=== PATIENT | male | born 1930 | race Asian ===

== ENCOUNTER 2017-04-05 15:20 | Inpatient (IN) | payer MEDICARE, MEDICAID ==
[~2017-04-05] VITALS: Ht 172.7 cm; Wt 90.7 kg
[~2017-04-05 15:20] MED LIST: ARICEPT10 MG ORAL; NAMENDA10 MG ORAL; NKM
[2017-04-05] MEDS ORDERED: Morphine Sulfate 2mg/ml Inj IVP ONE (15:30)
[2017-04-05 15:34] LABS: MEAN CORPUSCULAR HGB CONC 36.3 G/DL (32.0-36.0); MEAN CORPUSCULAR VOLUME 94 FL (80-99); MEAN PLATELET VOLUME 5.5 FL (6.5-10.1); PLATELET COUNT 304 K/UL (150-450); RED BLOOD COUNT 3.69 M/UL (4.70-6.10)
[2017-04-05 15:35] LABS: BASOPHILS % (AUTO) 1.4 % (0.0-2.0); EOSINOPHILS % (AUTO) 1.7 % (0.0-3.0); LYMPHOCYTES % (AUTO) 22.4 % (20.0-45.0); MONOCYTES % (AUTO) 3.4 % (1.0-10.0); NEUTROPHILS % (AUTO) 71.1 % (45.0-75.0)
[2017-04-05 15:51] LABS: ALANINE AMINOTRANSFERASE 15 U/L (3-41); ALBUMIN/GLOBULIN RATIO 1.2 (1.0-2.7); ANION GAP 18 (5-15); ASPARTATE AMINO TRANSFERASE 26 U/L (5-40); CALCIUM 9.3 mg/dL (8.6-10.2); CARBON DIOXIDE 22 mEQ/L (20-30); CHLORIDE 98 mEQ/L (98-107); CREATININE 1.5 mg/dL (0.7-1.2); HEMOLYSIS 9; POTASSIUM 4.7 mEQ/L (3.4-4.9); SODIUM 138 mEQ/L (135-145); TOTAL PROTEIN 7.3 g/dL (6.6-8.7)
[2017-04-05 15:57] LABS: INR 1.1 (0.9-1.1); PROTHROMBIN TIME 11.7 SEC (9.30-11.50)
[2017-04-05 15:59] VITALS: BP 94/66
[2017-04-05] MEDS ORDERED: Morphine Sulfate 4mg/ml Inj IVP ONE (16:15)
--- NOTE | 2017-04-05 16:15 | Emergency Room Report ---
History of Present Illness General Chief Complaint: Multiple Trauma/Fall Source: Patient, EMS Present Illness HPI Patient is an 86-year-old male who presented after having a recent fall. Patient had increased pain to his right hip. The patient had previously been admitted to the hospital for gallstones the past. Patient reported having increased pain and difficulty moving right leg. He had attempted to use a lidocaine patch with continued pain. The patient had not been able to a blood since the fall. Patient was brought in by EMS. Allergies: Coded Allergies: No Known Allergies (Unverified , 09/16/16) Patient History Reviewed Nursing Documentation: PMH: Agreed, PSxH: Agreed Nursing Documentation-PMH Past Medical History: No History, Except For Hx Cardiac Problems: No Hx Hypertension: Yes Hx Diabetes: Yes Hx Cancer: No Hx Gastrointestinal Problems: No Hx Neurological Problems: Yes - Dementia Hx Alzheimer's Disease: Yes Review of Systems All Other Systems: negative except mentioned in HPI Physical Exam Vital Signs Date Time Temp Pulse Resp B/P Pulse Ox O2 Delivery O2 Flow Rate FiO2 04/05/17 15:19 98.4 60 18 114/78 98 Room Air Sp02 EP Interpretation: reviewed, normal General Appearance: normal inspection, well appearing, no apparent distress, alert Head: atraumatic ENT: normal ENT inspection, hearing grossly normal, normal voice Neck: normal inspection, full range of motion, supple, no bony tend Respiratory: normal inspection, lungs clear, normal breath sounds, no respiratory distress, no retraction, no wheezing Cardiovascular #1: regular rate, rhythm, no edema Gastrointestinal: normal inspection, normal bowel sounds, non tender, soft, no guarding, no hernia Genitourinary: no CVA tenderness Musculoskeletal: back normal, normal range of motion Neurologic: normal inspection, alert, oriented x3, responsive, 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 Differential diagnosis included was not limited to fracture, dislocation, contusion muscle injury among others. CT of the abdomen pelvis read by radiology showed a comminuted right intertrochanteric femur fracture. The patient was given IV pain medications. Dr. Smith was contacted for inpatient management due to prior admission EKG Diagnostic Results Rate: bradycardiac Rhythm: NSR ST Segments: no acute changes ASA given to the pt in ED: No Rhythm Strip Diag. Results EP Interpretation: yes Rhythm: NSR, no PVC's, no ectopy Chest X-Ray Diagnostic Results Chest X-Ray Ordered: Yes # of Views/Limited/Complete: 1 View Interpretation: no consolidation, no effusion, no pneumothorax, no acute cardiopulmonary disease Indication: Other - preop Impression: No acute disease Date Electronically Signed: Apr 05, 2017 Time Electronically Signed: 17:06 Interpreting ER Physician: Richy Last Vital Signs Date Time Temp Pulse Resp B/P Pulse Ox O2 Delivery O2 Flow Rate FiO2 04/05/17 16:00 98.5 04/05/17 15:59 58 21 94/66 97 Room Air Status: unchanged Disposition: ADMITTED INPATIENT Condition: Serious Referrals: NOT CHOSEN IPA/,REFERRING (PCP) Mitesh Lockhart Apr 05, 2017 16:15
[2017-04-05 16:56] VITALS: BP 99/66
[2017-04-05] MEDS ORDERED: LORazepam Inj 2mg/ml 1ml IV ONE (17:15)
[2017-04-05] MEDS ORDERED: CELEBREX200 MG ORAL (17:48)
[2017-04-05] MEDS ORDERED: AMIODARONE HCL400 M1 ORAL (17:48)
[2017-04-05] MEDS ORDERED: XARELTO10 MG ORAL (17:48)
[2017-04-05] MEDS ORDERED: METOPROLOL SUCC25 MG ORAL (17:48)
[2017-04-05] MEDS ORDERED: NAMENDA XR28 MG PO (17:48)
[2017-04-05] MEDS ORDERED: MONTELUKAST SOD10 MG ORAL (17:48)
--- NOTE | 2017-04-05 18:15 | Cardiac Electrophysiology PN ---
Subjective Subjective [id number] HTN, PAF, Right femur Fx. Hold Xarelto, Get Echo. Continue Amiodarone and Lopressor Objective Last 24 Hour Vital Signs Date Time Temp Pulse Resp B/P Pulse Ox O2 Delivery O2 Flow Rate FiO2 04/05/17 16:56 97.4 54 13 99/66 99 Room Air 04/05/17 16:00 98.5 04/05/17 15:59 58 21 94/66 97 Room Air 04/05/17 15:19 98.4 60 18 114/78 98 Room Air PADMAJA RODRIGUEZ Apr 05, 2017 18:15
[2017-04-05 18:30] VITALS: BP 121/73
[2017-04-05] MEDS ORDERED: Zolpidem 5mg tab ORAL PRN (18:30)
[2017-04-05] MEDS ORDERED: Milk of Magnesia 30ml Ud ORAL PRN (18:30)
[2017-04-05] MEDS: HYDROmorphone 1mg/ml Carpuject IVP PRN (19:17)
[2017-04-05] MEDS: D5 1/2NS 1,000 ML IV SCH (19:42)
[2017-04-05 19:46] LABS: APPEARANCE,URINE CLEAR; KETONES,URINE NEGATIVE (NEGATIVE); LEUKOCYTE ESTERASE ,URINE NEGATIVE (NEGATIVE); NITRITE,URINE NEGATIVE (NEGATIVE); PH,URINE 7 (4.5-8.0); PROTEIN,URINE 2+ (NEGATIVE); UROBILINOGEN,URINE NORMAL MG/DL (0.0-1.0)
[2017-04-05 20:00] VITALS: BP 106/61
[2017-04-05 20:04] VITALS: BP 105/71
[2017-04-05 20:13] LABS: RBC,URINE 0-2 /HPF (0 - 0); WBC,URINE 0-2 /HPF (0 - 0)
[2017-04-05] MEDS: Heparin 5000 units/ml inj SUBQ SCH (21:00)
--- NOTE | 2017-04-05 21:45 | Consultation ---
DATE OF CONSULTATION: 04/05/2017 CARDIOLOGY CONSULTATION CONSULTING PHYSICIAN: Roosevelt Hatfield M.D. REFERRING PHYSICIAN: Evens Sheridan M.D. REASON FOR CONSULTATION: Management of hypertension and proximal atrial fibrillation in the patient with hip fracture. HISTORY OF PRESENT ILLNESS: The patient is an 86-year-old old Maltese gentleman with history of hypertension, paroxysmal atrial fibrillation, and dementia, who had a fall at home resulting in a right hip pain. The patient was in the hospital in the past for gallstones. The patient had attempted to use a lidocaine pain, but he had continued pain. The patient was brought by the paramedics to the emergency room where x-ray showed intertrochanteric right femur fracture. Cardiology consultation was obtained for further evaluation and management. At the time of my evaluation, patient is confused in the emergency room and complaints of right hip pain. REVIEW OF SYSTEMS: Cannot be obtained as the patient is confused despite Maltese full time. PAST MEDICAL HISTORY: 1. Hypertension. 2. Paroxysmal atrial fibrillation. 3. Dementia. MEDICATIONS: At home includes: 1. Amiodarone 100 mg daily. 2. Celebrex 200 mg daily. 3. Aricept. 4. Namenda. 5. Metoprolol 25 mg daily. 6. Xarelto 50 mg daily. SOCIAL HISTORY: He lives at home. Does not smoke or drink alcohol. PHYSICAL EXAMINATION: VITAL SIGNS: Blood pressure 94/66, pulse 58, respirations 21, and temperature 98.5 degrees. HEAD AND NECK: Showed no JVD. LUNGS: Clear. CARDIOVASCULAR: Shows regular S1 and S2 with no gallop or murmur. ABDOMEN: Soft. EXTREMITIES: Have no pitting edema. LABORATORY DATA: His labs show white count of 18, hemoglobin 12.5, hematocrit 34.5, and platelet count is 304,000. Sodium 138, potassium 4.7, BUN of 28, creatinine 1.5, and glucose of 160. INR is 1.1. ASSESSMENT AND PLAN: 1. History of hypertension. Resume the patient's metoprolol 25 mg daily. It is good for patients arrhythmia as well. We will hold for heart rate less than 55. 2. Paroxysmal atrial fibrillation. Xarelto will be held in preparation for hip surgery. Continue amiodarone 100 mg daily and Lopressor 25 mg daily. 3. Right hip fracture. We will get an echocardiogram and completely rule out myocardial infarction protocol for clearance prior to the surgery. 4. Dementia. 5. Elevated white count likely secondary to hip fracture. 6. Renal failure. Creatinine 1.[address] Sheridan. Thank you very much, Dr. Sheridan, for allowing me to participate in the care of this patient. Please do not hesitate to contact if you have any questions regarding my evaluation. Roosevelt Hatfield M.D. DR: CHEMO JOB#: [id number] CC:
[2017-04-06 07:04] LABS: BASOPHILS % (AUTO) 1.9 % (0.0-2.0); EOSINOPHILS % (AUTO) 2.5 % (0.0-3.0); LYMPHOCYTES % (AUTO) 22.4 % (20.0-45.0); MEAN CORPUSCULAR HEMOGLOBIN 33.5 PG (27.0-31.0); MEAN CORPUSCULAR HGB CONC 35.1 G/DL (32.0-36.0); MEAN CORPUSCULAR VOLUME 95 FL (80-99); MEAN PLATELET VOLUME 5.3 FL (6.5-10.1); MONOCYTES % (AUTO) 6.9 % (1.0-10.0); NEUTROPHILS % (AUTO) 66.2 % (45.0-75.0); PLATELET COUNT 253 K/UL (150-450); RED BLOOD COUNT 3.21 M/UL (4.70-6.10); RED CELL DISTRIBUTION WIDTH 12.2 % (11.6-14.8)
[2017-04-06 07:11] LABS: ANION GAP 13 (5-15); CALCIUM 8.7 mg/dL (8.6-10.2); CARBON DIOXIDE 23 mEQ/L (20-30); CHLORIDE 100 mEQ/L (98-107); CHOLESTEROL 148 mg/dL (< 200); CHOLESTEROL/HDL RATIO 5.7 (3.3-4.4); CREATININE 1.5 mg/dL (0.7-1.2); HEMOLYSIS 3; LDL CHOLESTEROL (CALC.) 83 mg/dL (60-99); POTASSIUM 4.7 mEQ/L (3.4-4.9); SODIUM 136 mEQ/L (135-145)
[2017-04-06 07:17] LABS: TROPONIN I < 0.30 ng/mL (<=0.30)
[2017-04-06] MEDS: D5 1/2NS 1,000 ML IV SCH ×2 (07:51→23:08)
[2017-04-06 08:30] VITALS: BP 104/67
[2017-04-06] MEDS: Heparin 5000 units/ml inj SUBQ SCH ×2 (09:00→21:00)
[2017-04-06] MEDS: Amiodarone 200mg tab ORAL SCH (09:45)
--- NOTE | 2017-04-06 10:10 | Diagnostic Imaging Report ---
Indication: Cough Technique: XRAY CHEST 1 V Comparison: None Findings: Cardiac silhouette is prominent. There is no consolidation or pleural effusion. There is mild atelectasis in the left base. Atherosclerotic changes are seen. Degenerative changes of the spine are noted. Impression: Mild left basilar atelectasis. Cardiomegaly. Atherosclerotic changes.
--- NOTE | 2017-04-06 11:25 | History & Physical ---
History and Physical History & Physicial > dictated #[id number] TY CAICEDO Apr 06, 2017 11:25
[2017-04-06 11:35] VITALS: BP 112/67
[2017-04-06 15:33] VITALS: BP 114/75
--- NOTE | 2017-04-06 18:25 | Cardiology Report ---
APPROVED REPORT EXAM: Two-dimensional and M-mode echocardiogram with Doppler and color Doppler. INDICATION Syncope M-Mode DIMENSIONS IVSd0.7 (0.7-1.1cm)Left Atrium (MM)2.8 (1.6-4.0cm) LVDd3.6 (3.5-5.6cm)Aortic Root3.0 (2.0-3.7cm) PWd0.8 (0.7-1.1cm)Aortic Cusp Exc.2.0 (1.5-2.0cm) LVDs2.3 (2.5-4.0cm) PWs0.8 cm Technically difficult study due to poor acoustic windows. Normal left ventricular chamber size, systolic function and wall motion. Left ventricular ejection fraction estimated to be 60-65%. Mild left ventricular hypertrophy. No evidence of pericardial fat or effusion. All other cardiac chamber sizes are within normal limits. Focal aortic valve sclerosis with adequate cusp excursion Thickened mitral valve leaflets with normal excursion. Mitral annulus and aortic root calcification. Pulmonic valve not well visualized. Normal tricuspid valve structure. IVC is normal in size with physiologic collapse. A color flow and spectral Doppler study was performed and revealed: No aortic regurgitation. Trace mitral regurgitation. Left ventricular diastolic dysfunction grade 1. Trace tricuspid regurgitation. Tricuspid systolic velocities suggests peak right ventricular systolic pressure of 29 mmHg Pulmonic regurgitation present.
--- NOTE | 2017-04-06 22:30 | History and Physical Report ---
DATE OF ADMISSION: 04/05/2017 CHIEF COMPLAINT: The patient fell at home and developed right hip pain. HISTORY OF PRESENT ILLNESS: This is an 86-year-old German male who has history of dementia. He is unable to provide any history. The patient was admitted after a fall with pain and difficulty moving the right leg. The patient was seen in the emergency room and was found to have intertrochanteric fracture of the right femur. PAST MEDICAL HISTORY: Includes history of hypertension, diabetes, history of dementia, and history of atrial fibrillation. MEDICATIONS: Reviewed in EMR. SOCIAL HISTORY: The patient lives at home. No history of smoking or alcohol abuse. REVIEW OF SYSTEMS: Unobtainable. PHYSICAL EXAMINATION: GENERAL: The patient is an elderly male, in no acute distress. VITAL SIGNS: Blood pressure 104/67, pulse 74, temperature 97 degrees, and respiratory rate 20. HEENT: Pale conjunctivae. Anicteric sclerae. NECK: Supple. LUNGS: Clear to auscultation. HEART: S1 and S2 without murmurs or rubs. ABDOMEN: Soft and nontender. EXTREMITIES: No cyanosis or edema. Right lower extremity is externally rotated. LABORATORY FINDINGS: The chemistry panel shows a serum sodium 136, potassium 4.7, chloride 100, CO2 23, BUN is 31, creatinine 1.5, and blood sugar 160. CBC shows a WBC of 11,000, hematocrit 30.5, hemoglobin 9.7, and platelets 253,000. UA shows 2+ protein. Lipid panel shows the LDL of 83, HDL of 26, and triglycerides of 197. ASSESSMENT: This is an 86-year-old German male, who is status post fall resulting in right intertrochanteric fracture of right femur. He has a history of paroxysmal atrial fibrillation, diabetes, hypertension, and dementia. PLAN: The patient was on Xarelto, which will be on hold in anticipation for surgery. The patient was seen by Dr. Hatfield in Cardiology consultation. I had a discussion with him. He thinks the patient will probably be ready by Friday to undergo right hip repair. Meanwhile, an echocardiogram was ordered and he will probably need to be on heparin at some point. An echocardiogram was ordered. The patient also has renal failure. It is unclear if it is acute or chronic. The patient may have some prerenal azotemia. He will be hydrated. Laboratories will be followed and adjustments will be made in the patient's regimen. Evens Sheridan M.D. DR: Nikkie JOB#: [id number] CC:
[2017-04-07] VITALS (9 sets, daily range): BP systolic 108–141; BP diastolic 54–97
[2017-04-07 04:08] LABS: ANION GAP 15 (5-15); CALCIUM 8.3 mg/dL (8.6-10.2); CARBON DIOXIDE 22 mEQ/L (20-30); CHLORIDE 99 mEQ/L (98-107); CREATININE 1.5 mg/dL (0.7-1.2); EOSINOPHILS % (AUTO) 1.7 % (0.0-3.0); HEMOLYSIS 2; LYMPHOCYTES % (AUTO) 16.4 % (20.0-45.0); MEAN CORPUSCULAR HEMOGLOBIN 33.4 PG (27.0-31.0); MEAN CORPUSCULAR HGB CONC 35.2 G/DL (32.0-36.0); MEAN CORPUSCULAR VOLUME 95 FL (80-99); MEAN PLATELET VOLUME 5.3 FL (6.5-10.1); NEUTROPHILS % (AUTO) 71.8 % (45.0-75.0); PLATELET COUNT 228 K/UL (150-450); POTASSIUM 4.2 mEQ/L (3.4-4.9); RED BLOOD COUNT 2.83 M/UL (4.70-6.10); RED CELL DISTRIBUTION WIDTH 12.2 % (11.6-14.8); SODIUM 136 mEQ/L (135-145); WHITE BLOOD COUNT 13.2 K/UL (4.8-10.8)
[2017-04-07] MEDS: HYDROmorphone 1mg/ml Carpuject IVP PRN ×2 (06:57→10:34)
[2017-04-07] MEDS: Heparin 5000 units/ml inj SUBQ SCH (08:31)
--- NOTE | 2017-04-07 08:41 | Diagnostic Imaging Report ---
Indication: Abdominal pain status post fall Technique: CT scan of the abdomen and pelvis utilizing automated exposure control without intravenous or oral contrast. Axial, sagittal and coronal images were obtained. CT dose: Total DLP 928 mGycm; CTDI vol 16.8 mGy Comparison: 09/16/16 Findings: Evaluation of the solid organs is limited without intravenous contrast material. There is atelectasis in the lung bases. The liver, adrenal glands, spleen and pancreas are unremarkable. Gallstones are present. Hypodense lesions and subtle cortically based calcifications are seen of the bilateral kidneys incompletely characterized without contrast. Hypodense lesions measure up to 2.9 cm in the right kidney and 2.5 cm in the lower pole of the left kidney. Atherosclerotic changes are present. The small bowel loops are normal in caliber. There is no appendicitis. Colonic diverticulosis is present without diverticulitis. There is no free intraperitoneal fluid or air. Bladder is grossly unremarkable. There is a comminuted intertrochanteric right proximal femur fracture. Degenerative changes of the spine are present. There is grade 1 anterolisthesis of L4 on L5. Impression: Comminuted intratrochanteric right proximal femur fracture. Cholelithiasis. Atherosclerotic changes. Colonic diverticulosis. Bilateral renal hypodensities and cortically based calcifications incompletely characterized without contrast. Findings could represent cysts and complex cysts with calcification. Further evaluation with ultrasound or contrast CT recommended. The CT scanner at [facility] is accredited by the [employer] and the scans are performed using protocols designed to limit radiation exposure to as low as reasonably achievable to attain images of sufficient resolution adequate for diagnostic evaluation.
[2017-04-07] MEDS: Amiodarone 200mg tab ORAL SCH (08:46)
--- NOTE | 2017-04-07 12:23 | General Progress Note ---
Assessment/Plan Problem List: (1) Intertrochanteric fracture of right femur ICD Codes: S72.141A - Displaced intertrochanteric fracture of right femur, initial encounter for closed fracture SNOMED: 103685567, 240083135 (2) Fall ICD Codes: W19.XXXA - Unspecified fall, initial encounter SNOMED: 6280191, 878861911 (3) Dementia ICD Codes: F03.90 - Unspecified dementia without behavioral disturbance SNOMED: 05462643 (4) Afib ICD Codes: I48.91 - Unspecified atrial fibrillation SNOMED: 46731595 (5) HTN (hypertension) ICD Codes: I10 - Essential (primary) hypertension SNOMED: 13292344 Assessment/Plan Hip repair today follow labs Start Heparin when ok by surgeon Subjective Allergies: Coded Allergies: No Known Allergies (Unverified , 09/16/16) Subjective In NAD Objective Last 24 Hour Vital Signs Date Time Temp Pulse Resp B/P Pulse Ox O2 Delivery O2 Flow Rate FiO2 04/07/17 08:46 80 127/69 04/07/17 08:00 78 04/07/17 08:00 97.7 80 18 127/69 98 Room Air 04/07/17 04:00 77 04/07/17 00:00 81 04/06/17 20:00 83 04/06/17 18:55 97.5 04/06/17 16:00 82 04/06/17 15:33 97.5 80 20 114/75 95 Nasal Cannula 2.0 Intake and Output 04/06/17 04/07/17 19:00 07:00 Intake Total 1215 ml 675 ml Output Total 200 ml 275 ml Balance 1015 ml 400 ml Intake Oral 240 ml IV Total 975 ml 675 ml Output Urine Total 200 ml 275 ml Laboratory Tests 04/07/17 03:20: White Blood Count 13.2H, Red Blood Count 2.83L, Hemoglobin 9.5L, Hematocrit 26.9L, Mean Corpuscular Volume 95, Mean Corpuscular Hemoglobin 33.4H, Mean Corpuscular Hemoglobin Concent 35.2, Red Cell Distribution Width 12.2, Platelet Count 228, Mean Platelet Volume 5.3L, Neutrophils (%) (Auto) 71.8, Lymphocytes ( %) (Auto) 16.4L, Monocytes (%) (Auto) 8.0, Eosinophils (%) (Auto) 1.7, Basophils (%) (Auto) 2.0, Prothrombin Time 10.0, Prothromb Time International Ratio 1.0, Activated Partial Thromboplast Time 26, Sodium Level 136, Potassium Level 4.2, Chloride Level 99, Carbon Dioxide Level 22, Anion Gap 15, Blood Urea Nitrogen 30H, Creatinine 1.5H, Estimat Glomerular Filtration Rate , Glucose Level 168H, Calcium Level 8.3L Height (Feet): 5 Height (Inches): 8.00 Weight (Pounds): 200 Cardiovascular: normal rate Respiratory/Chest: lungs clear Edema: no edema noted Generalized TY CAICEDO Apr 07, 2017 12:23
[2017-04-07] MEDS: D5 1/2NS 1,000 ML IV SCH (13:05)
--- NOTE | 2017-04-07 14:15 | Cardiac Electrophysiology PN ---
Assessment/Plan Status Narrative Technically difficult study due to poor acoustic windows. Normal left ventricular chamber size, systolic function and wall motion. Left ventricular ejection fraction estimated to be 60-65%. Mild left ventricular hypertrophy. No evidence of pericardial fat or effusion. All other cardiac chamber sizes are within normal limits. Focal aortic valve sclerosis with adequate cusp excursion Thickened mitral valve leaflets with normal excursion. Mitral annulus and aortic root calcification. Pulmonic valve not well visualized. Normal tricuspid valve structure. IVC is normal in size with physiologic collapse. Assessment/Plan 1. Hypertension.Continue Metoprolol 25 mg 2. Paroxysmal atrial fibrillation. Xarelto held in preparation for hip surgery. Continue amiodarone 100 mg daily and Lopressor 25 mg daily. 3. Right hip fracture. Echo EF 65%. No CP or clinical CHF. Ok to proceed with Hip surgery. 4. Dementia. 5. Elevated white count likely secondary to hip fracture. 6. Renal failure. Creatinine 1.[address] Sheridan. NICHOLE RN Subjective Subjective In SR on tele. No chest pain or SOB. Objective Last 24 Hour Vital Signs Date Time Temp Pulse Resp B/P Pulse Ox O2 Delivery O2 Flow Rate FiO2 04/07/17 08:46 80 127/69 04/07/17 08:00 78 04/07/17 08:00 97.7 80 18 127/69 98 Room Air 04/07/17 04:00 77 04/07/17 00:00 81 04/06/17 20:00 83 04/06/17 18:55 97.5 04/06/17 16:00 82 04/06/17 15:33 97.5 80 20 114/75 95 Nasal Cannula 2.0 Intake and Output 04/06/17 04/07/17 19:00 07:00 Intake Total 1215 ml 675 ml Output Total 200 ml 275 ml Balance 1015 ml 400 ml Intake Oral 240 ml IV Total 975 ml 675 ml Output Urine Total 200 ml 275 ml Laboratory Tests Test 04/07/17 03:20 White Blood Count 13.2 K/UL (4.8-10.8) H Red Blood Count 2.83 M/UL (4.70-6.10) L Hemoglobin 9.5 G/DL (14.2-18.0) L Hematocrit 26.9 % (42.0-52.0) L Mean Corpuscular Volume 95 FL (80-99) Mean Corpuscular Hemoglobin 33.4 PG (27.0-31.0) H Mean Corpuscular Hemoglobin Concent 35.2 G/DL (32.0-36.0) Red Cell Distribution Width 12.2 % (11.6-14.8) Platelet Count 228 K/UL (150-450) Mean Platelet Volume 5.3 FL (6.5-10.1) L Neutrophils (%) (Auto) 71.8 % (45.0-75.0) Lymphocytes (%) (Auto) 16.4 % (20.0-45.0) L Monocytes (%) (Auto) 8.0 % (1.0-10.0) Eosinophils (%) (Auto) 1.7 % (0.0-3.0) Basophils (%) (Auto) 2.0 % (0.0-2.0) Prothrombin Time 10.0 SEC (9.30-11.50) Prothromb Time International Ratio 1.0 (0.9-1.1) Activated Partial Thromboplast Time 26 SEC (23-33) Sodium Level 136 mEQ/L (135-145) Potassium Level 4.2 mEQ/L (3.4-4.9) Chloride Level 99 mEQ/L (98-107) Carbon Dioxide Level 22 mEQ/L (20-30) Anion Gap 15 (5-15) Blood Urea Nitrogen 30 mg/dL (7-23) H Creatinine 1.5 mg/dL (0.7-1.2) H Estimat Glomerular Filtration Rate mL/min (>60) Glucose Level 168 mg/dL (74-106) H Calcium Level 8.3 mg/dL (8.6-10.2) L Objective HEAD AND NECK: Showed no JVD. LUNGS: Clear. CARDIOVASCULAR: Regular S1 and S2 with no gallop or murmur. ABDOMEN: Soft. EXTREMITIES: Have no pitting edema. PADMAJA RODRIGUEZ Apr 07, 2017 14:15
[2017-04-07] MEDS ORDERED: LR 1000ml 1,000 ML IVLG SCH ×2 (15:28→18:15)
--- NOTE | 2017-04-07 15:28 | Anethesia Preoperative Eval ---
Anesthesia Pre-op PMH/ROS General Date of Evaluation: Apr 07, 2017 Time of Evaluation: 15:20 Anesthesiologist: Robert ASA Score: ASA 3 Mallampati Score Class I : Soft palate, uvula, fauces, pillars visible Class II: Soft palate, uvula, fauces visible Class III: Soft palate, base of uvula visible Class IV: Only hard plate visible Mallampati Classification: Class II Surgeon: Greg Diagnosis: Right hip fx Surgical Procedure: ORIF right hip Family History: no anesthesia problems Allergies: Coded Allergies: No Known Allergies (Unverified , 09/16/16) Medications: see eMAR Past Medical History Cardiovascular: Reports: HTN, arrhythmia - Paroxysmal Afib Gastrointestinal/Genitourinary: Reports: CRI Neurologic/Psychiatric: Reports: dementia Endocrine: Reports: DM PMH Narrative: HTN, paroxysmal Afib, dementia. CRI Anesthesia Pre-op Phys. Exam Physician Exam Last Vital Signs Date Time Temp Pulse Resp B/P Pulse Ox O2 Delivery O2 Flow Rate FiO2 04/07/17 08:46 80 127/69 04/07/17 08:00 97.7 18 98 Room Air 04/06/17 15:33 2.0 Constitutional: NAD Neurologic: CN 2-12 intact Cardiovascular: RRR, no M/R/G Respiratory: CTA Gastrointestinal: S/NT/ND Airway Exam Mallampati Score: Class II MO: full ROM: full Teeth: missing Anesthesia Pre-op A/P Labs Hematology Test 04/07/17 03:20 White Blood Count 13.2 K/UL (4.8-10.8) H Red Blood Count 2.83 M/UL (4.70-6.10) L Hemoglobin 9.5 G/DL (14.2-18.0) L Hematocrit 26.9 % (42.0-52.0) L Mean Corpuscular Volume 95 FL (80-99) Mean Corpuscular Hemoglobin 33.4 PG (27.0-31.0) H Mean Corpuscular Hemoglobin Concent 35.2 G/DL (32.0-36.0) Red Cell Distribution Width 12.2 % (11.6-14.8) Platelet Count 228 K/UL (150-450) Mean Platelet Volume 5.3 FL (6.5-10.1) L Neutrophils (%) (Auto) 71.8 % (45.0-75.0) Lymphocytes (%) (Auto) 16.4 % (20.0-45.0) L Monocytes (%) (Auto) 8.0 % (1.0-10.0) Eosinophils (%) (Auto) 1.7 % (0.0-3.0) Basophils (%) (Auto) 2.0 % (0.0-2.0) Coagulation Test 04/07/17 03:20 Prothrombin Time 10.0 SEC (9.30-11.50) Prothromb Time International Ratio 1.0 (0.9-1.1) Activated Partial Thromboplast Time 26 SEC (23-33) Chemistry Test 04/07/17 03:20 Sodium Level 136 mEQ/L (135-145) Potassium Level 4.2 mEQ/L (3.4-4.9) Chloride Level 99 mEQ/L (98-107) Carbon Dioxide Level 22 mEQ/L (20-30) Anion Gap 15 (5-15) Blood Urea Nitrogen 30 mg/dL (7-23) H Creatinine 1.5 mg/dL (0.7-1.2) H Estimat Glomerular Filtration Rate mL/min (>60) Glucose Level 168 mg/dL (74-106) H Calcium Level 8.3 mg/dL (8.6-10.2) L Studies Pre-op Studies: EKG - Sinus bradycardia Risk Assessment & Plan Assessment: Hypertensive male with paroxysmal afib with right hip fracture Plan: GA, LMA Status Change Before Surgery: No Pre-Antibiotics Drug: Ancef Given Within 1 Hr of Incision: Yes Time Given: 16:00 JANIYA BULLARD M.D. Apr 07, 2017 15:28
[2017-04-07] MEDS ORDERED: LORazepam Inj 2mg/ml 1ml IV PRN ×2 (15:30→18:15)
[2017-04-07] MEDS ORDERED: NS Irrig 1000ml ONE (15:30)
[2017-04-07] MEDS ORDERED: LR 1000ml ONE (15:30)
[2017-04-07] MEDS ORDERED: Sterile Water Irrig 1000ml IRRIG ONE (15:30)
[2017-04-07] MEDS ORDERED: fentaNYL 100 mcg/2 mL IV ONE (15:30)
[2017-04-07] MEDS ORDERED: Propofol 10mg/ml 20ml IV ONE (15:30)
[2017-04-07] MEDS ORDERED: Hydromorphone 0.5mg/0.5ml inj IVP PRN ×2 (15:30→18:15)
[2017-04-07] MEDS ORDERED: Midazolam 2mg/2ml Inj ONE (15:30)
--- NOTE | 2017-04-07 15:31 | Immediate Post-Op Evaluation ---
Immediate Post-Op Evalulation Immediate Post-Op Evalulation Procedure: ORIF right hip Date of Evaluation: Apr 07, 2017 Time of Evaluation: 17:15 IV Fluids: 700 Estimated Blood Loss: 30 Urinary Output: 50 Blood Pressure Systolic: 123 Blood Pressure Diastolic: 97 Pulse Rate: 67 Respiratory Rate: 18 O2 Sat by Pulse Oximetry: 100 Temperature (Fahrenheit): 97.0 Pain Score (1-10): 0 Nausea: No Vomiting: No Complications No complication Patient Status: reacts, patent, none Hydration Status: adequate Drug: Ancef Given Within 1 Hr of Incision: Yes Time Given: 16:00 JANIYA BULLARD M.D. Apr 07, 2017 15:30
--- NOTE | 2017-04-07 15:38 | Pre-Procedure Note/Attestation ---
Pre-Procedure Note/Attestation Complete Prior to Procedure Planned Procedure: right Procedure Narrative: hip open reduction internal fixation Indications for Procedure Pre-Operative Diagnosis: right hip fracture Attestation I attest that I discussed the nature of the procedure; its benefits; risks and complications; and alternatives (and the risks and benefits of such alternatives ), prior to the procedure, with the patient (or the patient's legal insurance claims representative). I attest that, if there was a reasonable possibility of needing a blood transfusion, the patient (or the patient's legal insurance claims representative) was given the [facility] standardized written summary, pursuant to the Rai Celine Blood Safety Act ([place] Health and Safety Code # 1645, as amended). I attest that I re-evaluated the patient just prior to the surgery and that there has been no change in the patient's H&P, except as documented below: JEREMIAH VEE Apr 07, 2017 15:38
[2017-04-07] MEDS ORDERED: D5 1/2NS w/KCl 20mEq 1,000 ML IV SCH (15:52)
[2017-04-07] MEDS ORDERED: Norco 5mg/325mg tab ORAL PRN ×2 (16:00→22:00)
[2017-04-07] MEDS ORDERED: Milk of Magnesia 30ml Ud ORAL PRN ×2 (16:00→18:30)
[2017-04-07] MEDS ORDERED: Norco 7.5mg/325mg tab ORAL PRN (16:00)
[2017-04-07] MEDS ORDERED: Morphine Sulfate 2mg/ml Inj IVP PRN ×3 (16:00→19:00)
[2017-04-07] MEDS ORDERED: Bupivacaine 0.25% Inj 30ml INJ ONE (16:13)
[2017-04-07] MEDS ORDERED: Bacitracin 50000 Units Vial IRRIG ONE (16:41)
--- NOTE | 2017-04-07 16:45 | Consultation ---
DATE OF CONSULTATION: 04/05/2017 CONSULTING PHYSICIAN: Danny Garza M.D. CHIEF COMPLAINT: Right hip pain. HISTORY OF PRESENT ILLNESS: The patient is a pleasant 86-year-old gentleman who sustained a mechanical fall. He has significant pain and difficulty ambulating. He is now brought to the emergency room where imaging studies showed a right hip fracture. Orthopedic consultation was obtained for further care and recommendation. The patient has pain and difficulty with moving the right hip. Denies any numbness or tingling. PAST MEDICAL HISTORY: 1. Hypertension. 2. Diabetes. 3. Dementia. 4. Atrial fibrillation. MEDICATIONS: Reviewed from the intake chart and showed the patient is on Xarelto. SOCIAL HISTORY: The patient lives at home. Does not smoke or drink. REVIEW OF SYSTEMS: Unobtainable. PHYSICAL EXAMINATION: GENERAL: The patient is an elderly gentleman, in no acute distress. He is resting comfortably on bed. VITAL SIGNS: Afebrile. Stable vital signs. EXTREMITIES: Right hip examination shows pain with internal and external rotation. Posterior calf is soft. Neurovascular exam is normal. IMAGING STUDIES: The right hip showed a 3-part intertrochanteric hip fracture. LABORATORY VALUES: Reviewed. ASSESSMENT: 1. Right three-part intertrochanteric hip fracture. 2. Atrial fibrillation. 3. Diabetes. 4. Hypertension. 5. Dementia. DISCUSSION: At this point, the patient is on Xarelto. We will try to hold that. He is going to get medical clearance by Dr. Hatfield. We will try to optimize him over the weekend and then probably proceed with surgery on Friday. Risk, limitations, expectations, and complications of procedure were discussed in detail. We had a discussion with his family particularly his son, Rai Gupta. All questions were addressed. Danny Garza M.D. DR: BROOK JOB#: [id number] CC:
--- NOTE | 2017-04-07 16:46 | Operative Note - PDOC ---
Operative Note Operative Note Pre-op Diagnosis: right hip fracture Procedure: right hip orif Post-op Diagnosis: same as pre-op Operative Findings: consistent w/pre-op dx studies Anesthesia: general Specimen: none Complications: none Condition: stable Estimated Blood Loss: minimal Implant(s) used?: Yes JEREMIAH VEE Apr 07, 2017 16:46
[2017-04-07] MEDS ORDERED: Docusate 100mg cap ORAL SCH (18:00)
[2017-04-07] MEDS: D5 1/2NS w/KCl 20mEq 1,000 ML IV SCH (21:09)
[2017-04-07] MEDS: Morphine Sulfate 2mg/ml Inj IVP PRN (22:23)
--- NOTE | 2017-04-07 23:30 | Operative Note - Dictated ---
DATE OF OPERATION: 04/07/2017 PREOPERATIVE DIAGNOSIS: Right three-part intertrochanteric hip fracture. POSTOPERATIVE DIAGNOSIS: Right three-part intertrochanteric hip fracture. PROCEDURE: Open reduction and internal fixation of right intertrochanteric hip fracture. SURGEON: Danny Garza M.D. ANESTHESIA: General. INDICATION FOR PROCEDURE: The patient is an 86-year-old gentleman, who sustained a mechanical fall. He was diagnosed with a three-part intertrochanteric hip fracture, indicative of operative fixation. Risks, limitations, expectations, and complications of the procedure were discussed in detail including nonunion, malunion, need for future surgery, risk of anesthesia, medical complications, DVT, PE, and mortality risk. All questions were addressed. DESCRIPTION OF PROCEDURE: Informed consent was obtained. The patient was taken to the operative room. The patient was placed under general anesthesia. The patient was then carefully placed on fracture table and reduction of the fracture was performed. It required a lot of external rotation of his hip joint in order to get the reduction and also anatomic. Once that was done, the right hip was prepped and draped in a sterile manner. Ancef was administered. Time-out was performed. A lateral skin incision was then made. A guidewire was placed in the proximal proximal opening reamer was then placed. A short 125 gamma nail was selected and placed. While introducing the nail, there was slight loss of the reduction. It was felt that probably once the cannulated screw was placed, we could do compression across the fracture site to further ict help desk officer in the reduction. Therefore, a guidewire was placed with the neck-head junction. A 105-mm cannula was then placed. Once it was placed, the fracture site was then decompressed. Superiorly, the fracture site decompressed along the medial , there was still some gapping. At this point, it was felt the only way to further reduce it was to remove the hardware and then formally reduce the fracture with clamps and then re-instrument it. Given his age and comorbidities, it was felt that it would be significantly complicated. Therefore, it was felt that the overall stability of the fracture fragment and alignment was acceptable, although not anatomic. At this point, distal locking screw was then placed. The tourniquet device was removed. Portal sites were closed with #1 Vicryl suture, 2-0 Vicryl suture, and 3-0 Monocryl sutures. Steri-Strips and sterile dressing were applied. The patient was awoken and taken to recovery room with stable vital signs. ESTIMATED BLOOD LOSS: 25 mL. COMPLICATIONS: None. SPECIMENS: None. IMPLANTS: Siri short gamma nail, 105 mm cannulated screw and a 37.5 distal locking screw. Danny Garza M.D. DR: BROOK JOB#: [id number] CC:
[2017-04-08] MEDS ORDERED: ceFAZolin sod 2 GM in D5W 110 ML IV SCH ×2
[2017-04-08] MEDS: ceFAZolin sod 2 GM in D5W 110 ML IV SCH ×2 (00:04→11:00)
[2017-04-08 00:18] VITALS: BP 135/76
[2017-04-08] MEDS: Morphine Sulfate 2mg/ml Inj IVP PRN (01:36)
[2017-04-08 04:25] VITALS: BP 108/55
[2017-04-08 07:07] LABS: BASOPHILS % (AUTO) 1.5 % (0.0-2.0); EOSINOPHILS % (AUTO) 2.3 % (0.0-3.0); LYMPHOCYTES % (AUTO) 20.6 % (20.0-45.0); MEAN CORPUSCULAR HEMOGLOBIN 32.8 PG (27.0-31.0); MEAN CORPUSCULAR HGB CONC 34.6 G/DL (32.0-36.0); MEAN CORPUSCULAR VOLUME 95 FL (80-99); MEAN PLATELET VOLUME 5.5 FL (6.5-10.1); MONOCYTES % (AUTO) 7.7 % (1.0-10.0); NEUTROPHILS % (AUTO) 67.9 % (45.0-75.0); PLATELET COUNT 237 K/UL (150-450); RED BLOOD COUNT 2.64 M/UL (4.70-6.10); WHITE BLOOD COUNT 12.5 K/UL (4.8-10.8)
[2017-04-08 07:12] LABS: ANION GAP 17 (5-15); CALCIUM 8.1 mg/dL (8.6-10.2); CARBON DIOXIDE 21 mEQ/L (20-30); CHLORIDE 98 mEQ/L (98-107); CREATININE 1.4 mg/dL (0.7-1.2); HEMOLYSIS 3; SODIUM 136 mEQ/L (135-145)
[2017-04-08 08:00] VITALS: BP 129/67
[2017-04-08] MEDS: D5 1/2NS w/KCl 20mEq 1,000 ML IV SCH ×2 (08:20→16:29)
[2017-04-08] MEDS: Docusate 100mg cap ORAL SCH ×3 (08:37→17:15)
[2017-04-08] MEDS: Amiodarone 200mg tab ORAL SCH (08:38)
[2017-04-08] MEDS: Enoxaparin 40mg Inj SUBQ SCH (08:40)
[2017-04-08] MEDS ORDERED: Enoxaparin 40mg Inj SUBQ SCH (09:00)
[2017-04-08] MEDS ORDERED: celeBREX 200mg Cap **SURGERY PATIENTS ONLY ORAL SCH ×2 (09:00)
--- NOTE | 2017-04-08 09:44 | 48 Hour Post Anesthesia Eval ---
Post Anesthesia Evaluation Procedure: ORIF right hip Date of Evaluation: Apr 08, 2017 Time of Evaluation: 11:12 Blood Pressure Systolic: 129 0: 67 Pulse Rate: 77 Respiratory Rate: 16 Temperature (Fahrenheit): 97.3 O2 Sat by Pulse Oximetry: 96 Airway: patent Nausea: No Vomiting: No Pain Intensity: 1 Hydration Status: adequate Cardiopulmonary Status: Stable Mental Status/LOC: patient returned to baseline Follow-up Care/Observations: As per surgery Post-Anesthesia Complications: No anesthetic complication Follow-up care needed: N/A JANIYA BULLARD M.D. Apr 08, 2017 09:44
--- NOTE | 2017-04-08 10:51 | Diagnostic Imaging Report ---
Indication: POST-OP, pain, status post fall Technique: One view of the pelvis Comparison: 04/05/2017 CT scan Findings: Interim surgical repair of previously demonstrated intertrochanteric fracture with medullary hugo and compression screw. Approximately 1 cm distraction of the fracture fragments. Bones are osteoporotic. Retained air from the surgical exposure seen within the soft tissues. Tillman catheter is present Impression: Postoperative right hip, as described
[2017-04-08 12:00] VITALS: BP 126/68
[2017-04-08] MEDS: Norco 7.5mg/325mg tab ORAL PRN ×2 (13:26→21:15)
--- NOTE | 2017-04-08 15:14 | General Progress Note ---
Assessment/Plan Problem List: (1) Intertrochanteric fracture of right femur ICD Codes: S72.141A - Displaced intertrochanteric fracture of right femur, initial encounter for closed fracture SNOMED: 212747578, 618608564 (2) Fall ICD Codes: W19.XXXA - Unspecified fall, initial encounter SNOMED: 1815830, 760017909 (3) Dementia ICD Codes: F03.90 - Unspecified dementia without behavioral disturbance SNOMED: 14890654 (4) Afib ICD Codes: I48.91 - Unspecified atrial fibrillation SNOMED: 24837476 (5) HTN (hypertension) ICD Codes: I10 - Essential (primary) hypertension SNOMED: 87441080 Assessment/Plan pain meds PRN no NSAIDs on Lovenox Subjective Allergies: Coded Allergies: No Known Allergies (Unverified , 09/16/16) Subjective C/O pain Objective Last 24 Hour Vital Signs Date Time Temp Pulse Resp B/P Pulse Ox O2 Delivery O2 Flow Rate FiO2 04/08/17 13:56 96.8 04/08/17 12:00 96.8 72 16 126/68 95 Nasal Cannula 2.0 04/08/17 09:44 77 16 96 04/08/17 08:38 77 129/67 04/08/17 08:00 97.7 77 16 129/67 96 Nasal Cannula 2.0 04/08/17 04:25 97.5 72 17 108/55 96 Nasal Cannula 2.0 04/08/17 02:06 97.9 04/08/17 00:18 97.9 80 18 135/76 96 Room Air 04/07/17 20:14 97.5 78 19 108/60 98 Nasal Cannula 2.0 04/07/17 18:00 99.2 66 15 109/63 98 Nasal Cannula 3.0 04/07/17 18:00 99.2 04/07/17 17:46 68 11 124/66 98 Nasal Cannula 3.0 04/07/17 17:30 68 21 119/54 99 Nasal Cannula 3.0 04/07/17 17:25 66 25 139/71 100 Nasal Cannula 3.0 04/07/17 17:13 67 25 125/78 100 Nasal Cannula 3.0 04/07/17 17:08 66 13 141/75 98 Simple Mask 6.0 6/19/17 17:06 67 18 100 04/07/17 17:03 99.0 67 12 123/97 98 Simple Mask 6.0 Intake and Output 04/07/17 04/08/17 19:00 07:00 Intake Total 1400 ml 915 ml Output Total 130 ml 350 ml Balance 1270 ml 565 ml Intake Oral 240 ml IV Total 1400 ml 675 ml Output Urine Total 100 ml 350 ml Estimated Blood Loss 30 ml Laboratory Tests 04/08/17 06:05: White Blood Count 12.5H, Red Blood Count 2.64L, Hemoglobin 8.7L, Hematocrit 25.1L, Mean Corpuscular Volume 95, Mean Corpuscular Hemoglobin 32.8H, Mean Corpuscular Hemoglobin Concent 34.6, Red Cell Distribution Width 12.0, Platelet Count 237, Mean Platelet Volume 5.5L, Neutrophils (%) (Auto) 67.9, Lymphocytes ( %) (Auto) 20.6, Monocytes (%) (Auto) 7.7, Eosinophils (%) (Auto) 2.3, Basophils (%) (Auto) 1.5, Sodium Level 136, Potassium Level 4.0, Chloride Level 98, Carbon Dioxide Level 21, Anion Gap 17H, Blood Urea Nitrogen 20, Creatinine 1.4H , Estimat Glomerular Filtration Rate , Glucose Level 166H, Calcium Level 8.1L Height (Feet): 5 Height (Inches): 8.00 Weight (Pounds): 200 Cardiovascular: normal rate Respiratory/Chest: lungs clear Edema: no edema noted Generalized TY CAICEDO Apr 08, 2017 15:14
[2017-04-08 16:00] VITALS: BP 117/66
[2017-04-08] MEDS ORDERED: Milk of Magnesia 30ml Ud ORAL PRN (16:00)
--- NOTE | 2017-04-08 16:04 | Cardiac Electrophysiology PN ---
Assessment/Plan Status Narrative Technically difficult study due to poor acoustic windows. Normal left ventricular chamber size, systolic function and wall motion. Left ventricular ejection fraction estimated to be 60-65%. Mild left ventricular hypertrophy. No evidence of pericardial fat or effusion. All other cardiac chamber sizes are within normal limits. Focal aortic valve sclerosis with adequate cusp excursion Thickened mitral valve leaflets with normal excursion. Mitral annulus and aortic root calcification. Pulmonic valve not well visualized. Normal tricuspid valve structure. IVC is normal in size with physiologic collapse. Assessment/Plan 1. Hypertension.Continue Metoprolol 25 mg 2. Paroxysmal atrial fibrillation. Off Xarelto for hip surgery. Continue amiodarone 100 mg daily and Lopressor 25 mg daily. 3. Right hip fracture. S/P Open reduction and internal fixation of right intertrochanteric hip fracture 04/07/17 with no cardiac events.Echo EF 65%. No CP or clinical CHF. 4. Dementia. 5. Elevated white count likely secondary to hip fracture. 6. Renal failure. Creatinine 1.[address] Sheridan. NICHOLE RN Subjective Subjective Had Open reduction and internal fixation of right intertrochanteric hip fracture yesterday.Transferred to [facility]. No chest pain or SOB.Getting iv Abx. Objective Last 24 Hour Vital Signs Date Time Temp Pulse Resp B/P Pulse Ox O2 Delivery O2 Flow Rate FiO2 04/08/17 13:56 96.8 04/08/17 12:00 96.8 72 16 126/68 95 Nasal Cannula 2.0 04/08/17 09:44 77 16 96 04/08/17 08:38 77 129/67 04/08/17 08:00 97.7 77 16 129/67 96 Nasal Cannula 2.0 04/08/17 04:25 97.5 72 17 108/55 96 Nasal Cannula 2.0 04/08/17 02:06 97.9 04/08/17 00:18 97.9 80 18 135/76 96 Room Air 04/07/17 20:14 97.5 78 19 108/60 98 Nasal Cannula 2.0 04/07/17 18:00 99.2 66 15 109/63 98 Nasal Cannula 3.0 04/07/17 18:00 99.2 04/07/17 17:46 68 11 124/66 98 Nasal Cannula 3.0 04/07/17 17:30 68 21 119/54 99 Nasal Cannula 3.0 04/07/17 17:25 66 25 139/71 100 Nasal Cannula 3.0 04/07/17 17:13 67 25 125/78 100 Nasal Cannula 3.0 04/07/17 17:08 66 13 141/75 98 Simple Mask 6.0 04/07/17 17:06 67 18 100 04/07/17 17:03 99.0 67 12 123/97 98 Simple Mask 6.0 Intake and Output 04/07/17 04/08/17 19:00 07:00 Intake Total 1400 ml 915 ml Output Total 130 ml 350 ml Balance 1270 ml 565 ml Intake Oral 240 ml IV Total 1400 ml 675 ml Output Urine Total 100 ml 350 ml Estimated Blood Loss 30 ml Laboratory Tests Test 04/08/17 06:05 White Blood Count 12.5 K/UL (4.8-10.8) H Red Blood Count 2.64 M/UL (4.70-6.10) L Hemoglobin 8.7 G/DL (14.2-18.0) L Hematocrit 25.1 % (42.0-52.0) L Mean Corpuscular Volume 95 FL (80-99) Mean Corpuscular Hemoglobin 32.8 PG (27.0-31.0) H Mean Corpuscular Hemoglobin Concent 34.6 G/DL (32.0-36.0) Red Cell Distribution Width 12.0 % (11.6-14.8) Platelet Count 237 K/UL (150-450) Mean Platelet Volume 5.5 FL (6.5-10.1) L Neutrophils (%) (Auto) 67.9 % (45.0-75.0) Lymphocytes (%) (Auto) 20.6 % (20.0-45.0) Monocytes (%) (Auto) 7.7 % (1.0-10.0) Eosinophils (%) (Auto) 2.3 % (0.0-3.0) Basophils (%) (Auto) 1.5 % (0.0-2.0) Sodium Level 136 mEQ/L (135-145) Potassium Level 4.0 mEQ/L (3.4-4.9) Chloride Level 98 mEQ/L (98-107) Carbon Dioxide Level 21 mEQ/L (20-30) Anion Gap 17 (5-15) H Blood Urea Nitrogen 20 mg/dL (7-23) Creatinine 1.4 mg/dL (0.7-1.2) H Estimat Glomerular Filtration Rate mL/min (>60) Glucose Level 166 mg/dL (74-106) H Calcium Level 8.1 mg/dL (8.6-10.2) L Objective HEAD AND NECK: Showed no JVD. LUNGS: Clear. CARDIOVASCULAR: Regular S1 and S2 with no gallop or murmur. ABDOMEN: Soft. EXTREMITIES: Have no pitting edema.S/P Hip ORIF PADMAJA RODRIGUEZ Apr 08, 2017 16:04
[2017-04-08 20:00] VITALS: BP 100/62
[2017-04-09] VITALS (7 sets, daily range): BP systolic 94–127; BP diastolic 50–69
[2017-04-09] MEDS: Norco 7.5mg/325mg tab ORAL PRN (03:08)
[2017-04-09] MEDS: D5 1/2NS w/KCl 20mEq 1,000 ML IV SCH (06:41)
[2017-04-09] MEDS: Docusate 100mg cap ORAL SCH ×2 (08:24→12:17)
[2017-04-09] MEDS: Amiodarone 200mg tab ORAL SCH (08:25)
[2017-04-09] MEDS: Enoxaparin 40mg Inj SUBQ SCH (08:28)
[2017-04-09] MEDS ORDERED: RANITIDINE HCL150 MG ORAL (11:15)
[2017-04-09] MEDS ORDERED: ELIQUIS2.5 MG ORAL (11:15)
[2017-04-09] MEDS ORDERED: NORCO 5-325 TA1 EACH ORAL (11:15)
[2017-04-09] MEDS ORDERED: MOM30 ML ORAL (11:15)
--- NOTE | 2017-04-09 11:19 | Consultation ---
Consult Note Assessment/Plan DC dictated # [id number] TY CAICEDO Apr 09, 2017 11:19
--- NOTE | 2017-04-09 12:15 | Physician Query ---
PLEASE COMPLETE THE DOCUMENT BEFORE SIGNING Dear Dr. Evens Sheridan Date: March Operating Room Manager/CDS Name: CATINA White Operating Room Manager / CDS Exercise your independent professional judgment when responding to query. Question asked do not imply a particular answer is desired/expected Clinical Documentation States: "Renal Failure" documented in consultation notes of Dr. Roosevelt Hatfield. Clinical Findings Show: Creatinine 1.5, 1.5, 1.4 BUN _28,31,30,20 Please Clarify the type of renal failure below: Etiology [] ARF w/ Tubular Necrosis [] ARF w/ Cortical Necrosis [] ARF w/ Medullary Necrosis [x] Acute Renal Failure (unspecified) [] Other: If Chronic, please specify the stage: [] CKD Stage 1 [] CKD Stage 2 [] CKD Stage 3 [] CKD Stage 4 [] CKD Stage 5 [] ESRD [] Not applicable Condition Present on Admission: [] Yes [] No []Clinically Undeterminable Please also document in your Progress Notes and/or Discharge Summary and indicate if the condition was present on admission. Evens Sheridan MD Date/Time [facility]
[2017-04-09] MEDS: Eliquis 2.5mg tablet ORAL SCH ×2 (12:17→12:18)
--- NOTE | 2017-04-09 12:42 | Physician Query ---
PLEASE COMPLETE DOCUMENT BEFORE SIGNING Dear Dr. Evens Sheridan Date: April 09, 2017 Vegetable Thinner/CDS Name: CATINA White Vegetable Thinner / CDS Phone #[phone] Exercise your independent professional judgment when responding to the query. Questions asked do not imply a particular answer is desired or expected. We greatly appreciate your clarification on this issue. CLINICAL DOCUMENTATION STATES: "Leukocytosis/Elevated WBC likely secondary to hip fracture" documented in the consultation notes of Dr. Roosevelt Hatfield. CLINICAL FINDINGS SHOW: WBC=18, 11, 13.2, 12.5 Intertrochancteric Fracture of the right Femur Please clarify if you mean: [] SIRS (Systemic Inflammatory Response Syndrome) [] SIRS w/ Organ Dysfunction [] Sepsis [] Sepsis w/ Organ Dysfunction [] Septic Shock [] Not Applicable [] Other Condition Present on Admission: [] Yes [] No []Clinically Undeterminable Please also document in your Progress Notes and/or Discharge Summary and indicate if the condition was present on admission. Evens Sheridan MD Date/Time [facility]
--- NOTE | 2017-04-09 13:14 | Cardiac Electrophysiology PN ---
Assessment/Plan Status Narrative Technically difficult study due to poor acoustic windows. Normal left ventricular chamber size, systolic function and wall motion. Left ventricular ejection fraction estimated to be 60-65%. Mild left ventricular hypertrophy. No evidence of pericardial fat or effusion. All other cardiac chamber sizes are within normal limits. Focal aortic valve sclerosis with adequate cusp excursion Thickened mitral valve leaflets with normal excursion. Mitral annulus and aortic root calcification. Pulmonic valve not well visualized. Normal tricuspid valve structure. IVC is normal in size with physiologic collapse. Assessment/Plan 1. Hypertension.Continue Metoprolol 25 mg daily 2. Paroxysmal atrial fibrillation. Continue amiodarone 100 mg daily and Lopressor 25 mg daily. Eliquis 2.5 bid resumed. 3. Right hip fracture. S/P Open reduction and internal fixation of right intertrochanteric hip fracture 04/07/17 with no cardiac events.Echo EF 65%. No CP or CHF. 4. Dementia. 5. Elevated white count likely secondary to hip fracture. 6. Renal failure. Creatinine 1.5 v NICHOLE RN and Dr Sheridan Subjective Subjective Comfortable in NAD. No chest pain or SOB.Getting iv Abx.Awaiting DC to SNIF Objective Last 24 Hour Vital Signs Date Time Temp Pulse Resp B/P Pulse Ox O2 Delivery O2 Flow Rate FiO2 04/09/17 12:00 96.7 67 16 107/61 93 Room Air 04/09/17 08:25 66 127/69 04/09/17 08:00 97.3 66 16 127/69 93 Room Air 04/09/17 04:52 64 105/67 96 Room Air 04/09/17 04:07 97.5 04/09/17 04:00 97.6 65 19 94/50 89 Room Air 04/09/17 00:35 71 108/61 04/09/17 00:18 97.5 72 18 95/55 90 Room Air 04/08/17 20:00 97.5 53 19 100/62 92 Room Air 04/08/17 16:00 97.7 73 16 117/66 97 Nasal Cannula 2.0 Intake and Output 04/08/17 04/09/17 19:00 07:00 Intake Total 1120 ml 1065 ml Output Total 300 ml Balance 820 ml 1065 ml Intake Oral 450 ml 240 ml IV Total 670 ml 825 ml Output Urine Total 300 ml # Voids 4 Objective HEAD AND NECK: Showed no JVD. LUNGS: Clear. CARDIOVASCULAR: Regular S1 and S2 with no gallop or murmur. ABDOMEN: Soft. EXTREMITIES: Have no pitting edema.S/P Hip ORIF PADMAJA RODRIGUEZ Apr 09, 2017 13:14
--- NOTE | 2017-04-09 14:00 | Progress Note ---
DATE: 04/09/2017 SUBJECTIVE: The patient is afebrile. The patient is status post open reduction and internal fixation of right hip. The patient is doing relatively well. He is tolerating p.o. Minimal pain. OBJECTIVE: Examination shows dressing is clean, dry, and intact. Neurovascular is normal. ASSESSMENT: Status post open reduction and internal fixation of right hip. DISCUSSION: At this point, he is going to continue with PT and OT. He will work on discharge planning. He will be maintained on DVT prophylaxis with Xarelto, which he was on preoperatively. He was seen in the office in two to three weeks. aDnny Garza M.D. DR: EB JOB#: [id number] CC: OTIS
--- NOTE | 2017-04-09 15:37 | Cardiology Report ---
APPROVED REPORT EKG Measurement Heart [id number] Sinus bradycardia Possible Inferior infarct, age undetermined Abnormal ECG
[2017-04-09] MEDS ORDERED: D5 1/2NS 1000ml IV ONE (17:11)
[2017-04-09] MEDS ORDERED: NS 275ml ONE (17:11)
[2017-04-09] MEDS ORDERED: Tubing IV Secondary IV ONE (17:11)
--- NOTE | 2017-04-09 22:00 | Discharge Summary ---
DATE OF ADMISSION: 04/05/2017 DATE OF DISCHARGE: 04/09/2017 CHIEF COMPLAINT: The patient fell at home and developed right hip pain. HISTORY OF PRESENT ILLNESS: This 86-year-old [place] male was admitted after a fall resulting in right intertrochanteric fracture of the femur. HOSPITAL COURSE: The patient was seen by Dr. Garza in orthopedic surgical consultation. The patient was cleared for surgery by Dr. Hatfield in cardiology consultation. The patient did have a history of paroxysmal atrial fibrillation and was taking Xarelto, which was put on hold a couple of days before the surgery. After the hip repair, which was done by Dr. Garza, the patient was started on Lovenox subcutaneous prophylactically for DVT and eventually at the time of discharge, it was switched to Eliquis 2.5 mg b.i.d. p.o. and his Lovenox was stopped. The patient was sent to [facility] for [facility]. Also I failed to note the patient had an echocardiogram, which showed ejection fraction to be 60% to 65%, and there was mild left ventricular hypertrophy. DISCHARGE DIAGNOSES: 1. Right femur intertrochanteric fracture, status post repair as mentioned. 2. History of atrial fibrillation. 3. History of dementia. 4. History of hypertension. DISCHARGE MEDICATIONS: Please refer discharge medication list. Evens Sheridan M.D. DR: RAF JOB#: [id number] CC:
--- NOTE | 2017-04-14 17:27 | Diagnostic Imaging Report ---
Indication: FX painful right hip fracture Technique: Digital intraoperative images Comparison: 04/05/2017 CT scanner Findings: Intraoperative images document surgical repair of right hip intertrochanteric fracture with compression screw and medullary hugo Impression: Intraoperative imaging, as described
== END 2017-04-09 17:12 | DRG 481 ==
LOC: EDBD 15:20 → EDBEDREQ 15:31 → EMR 15:50 → 2E 15:55 → EDBEDREQ 16:19 → EDBEDREQSVC 17:40 → EDBEDREQ 17:44 → 3E 04-07 18:13
PROC: 0QS604Z Reposition Right Upper Femur with Internal Fixation Device, Open Approach (ICD-10-PCS; principal; 2017-04-07 15:30)
DX: S72.144A Nondisplaced intertrochanteric fracture of right femur, initial encounter for closed fracture (principal); N17.9 Acute kidney failure, unspecified; F03.90 Unspecified dementia, unspecified severity, without behavioral disturbance, psychotic disturbance, mood disturbance, and anxiety; I48.0 Paroxysmal atrial fibrillation; W19.XXXA Unspecified fall, initial encounter; Y92.009 Unspecified place in unspecified non-institutional (private) residence as the place of occurrence of the external cause; Z79.01 Long term (current) use of anticoagulants; I10 Essential (primary) hypertension; E11.9 Type 2 diabetes mellitus without complications
CPT/HCPCS: 36415; 71010; 72170; 74176; 76001; 80048; 80053; 80061; 81003; 83735; 83880; 84439; 84443; 84484; 85025; 85610; 85730; 86850; 86900; 86901; 93005; 93306; 94003; 94150; J2250; J2405